=== PATIENT | female | born 1965 | race Caucasian/White ===

== ENCOUNTER 2016-08-11 22:08 | Emergency (ER) | payer OTHER, BC ==
--- NOTE | ~2016-08-11 | HP ---
History And Physical [address] [id number] [facility]. [address] NAME: JENIFFER JAMES : 63 STATUS : REG ER PAT#: [id number] AGE: 51 ADM/REG DATE : 08/11/16 MR#: [id number] REPORT SERV DATE: 08/12/16 DICTATED BY: NICOLAS MENDOZA DATE: 08/12/16 REPORT STATUS : Draft TRANSCRIBED BY: MODL DATE: 08/12/16 DATE OF ADMISSION: 08/11/2016 CHIEF COMPLAINT: Hernia. HISTORY OF PRESENT ILLNESS: This is a 51-year-old female, who was at work and was lifting a large quiz and art appliance and when doing so felt a sharp stabbing/tearing pain in her right lower quadrant/groin of her abdomen. She thought she first had pulled a muscle and the pain persisted, she saw medical care at work. She eventually got a rounding in the CT scan, which showed a hernia that was believed outside report to be incarcerated, so she was referred to the emergency department for acute care. The patient reports that she has pain in her right lower quadrant of her abdomen/groin. She has no nausea, no vomiting. She had a bowel movement, and her last bowel movement was three days ago, was normal. No bright red blood per rectum. No melena. She does report that she goes more often. She is passing gas. Denies any dysuria or hematuria. Denies anorexia. The patient has never had a hernia before. REVIEW OF SYSTEMS: All systems were reviewed and negative except for those mentioned in the HPI. ALLERGIES: NO KNOWN DRUG ALLERGIES. PAST MEDICAL HISTORY: GERD. PAST SURGICAL HISTORY: None. SOCIAL HISTORY: A 35 to 40 pack-year smoker. Drinks 10 to 12 beers a week. Has never had symptoms of withdrawal. No drugs. Works for [employer] here in [place], [place]. FAMILY HISTORY: No cancers or autoimmune disease mentioned. MEDICATIONS: Nexium daily. PHYSICAL EXAMINATION: VITAL SIGNS: Temperature 98.3, pulse 73, blood pressure 170/80, respiratory rate 20, and O2 sats 97% on room air. GENERAL: A well-developed, well-nourished, in no acute distress, white female, appears stated age. HEENT: Normocephalic and atraumatic. PERRLA. EOMI. Mucous membranes are moist. NECK: No lymphadenopathy. Trachea midline. CARDIOVASCULAR: Regular rate and rhythm. LUNGS: Clear to auscultation bilaterally. ABDOMEN: Soft and nondistended. She is tender to palpation in the right lower quadrant. An inguinal hernia could be palpated. With taxis maneuver, was easily able to reduce the hernia. The herniated bowel defect could be palpable. The patient had what appeared to be a large inguinal ring. After reduction, the abdomen was no longer tender. The patient felt History And Physical [address] [place]. [address] NAME: JENIFFER JAMES : 63 STATUS : REG ER PAT#: [id number] AGE: 51 ADM/REG DATE : 08/11/16 MR#: [id number] REPORT SERV DATE: 08/12/16 DICTATED BY: NICOLAS MENDOZA DATE: 08/12/16 REPORT STATUS : Draft TRANSCRIBED BY: STEPH DATE: 08/12/16 better. EXTREMITIES: No clubbing, cyanosis, or edema. 2+ pulses. MUSCULOSKELETAL: Moves all extremities well. NEURO: Cranial nerves 2 through 12 are intact. A and O x3. LABORATORY DATA: White blood cell count 9.9, hematocrit 35.1, and platelets 325. Sodium 143, potassium 3.6, chloride 107, bicarb 26, BUN 14, creatinine 0.8, and glucose 98. Urinalysis is negative. CT scan, as mentioned in HPI. ASSESSMENT AND PLAN: This is a 51-year-old female with right inguinal hernia, presented incarcerated, status post manual reduction in the emergency department. 1. The patient is stable, no longer tender to palpation. 2. The patient can follow up with Dr. Mendoza in his office to schedule an elective repair. 3. Smoking cessation counseling was offered, the patient expressed clear verbal understanding of this. DICTATED BY: MD CLARI Wilson/STEPH Nicolas Mendoza M.D. / [id number]
[2016-08-11 19:55] LABS: BASOPHILS 0.2 %; BASOPHILS ABSOLUTE 0.02 10/3/uL (0.0-0.16); EOSINOPHILS 1.3 %; EOSINOPHILS ABSOLUTE 0.13 10/3/uL (0.0-0.53); ER CBC TAT 0 Hrs 08 Mins; IMMATURE GRANULOCYTES 0.1 %; IMMATURE GRANULOCYTES ABSOLUTE 0.01 10/3/uL (0.0-0.11); LYMPHOCYTES 30.2 %; MEAN CORPUS HGB CONC 34.2 g/dL (32.0-36.0); MEAN CORPUSCULAR HEMOGLOB 33.2 pg (26.0-34.0); MEAN PLATELET VOLUME 9.1 fL (9.2-13.0); MONOCYTES 5.3 %; MONOCYTES ABSOLUTE 0.53 10/3/uL (0.21-1.20); NEUTROPHILS 62.9 %; NEUTROPHILS ABSOLUTE 6.25 10/3/uL (2.02-8.40); PLATELET COUNT 325 10/3/uL (150-400); RBC DISTRIBUTION WIDTH 12.7 % (12.0-16.0); RED CELL COUNT 3.61 10/6/uL (4.0-5.6); WHITE BLOOD CELLS 9.9 10/3/uL (4.5-10.5)
[2016-08-11 19:57] LABS: HEMATOCRIT 35.1 % (36.0-48.0); MANUAL DIFF NO %; MEAN CORPUSCULAR VOLUME 97.2 fL (80-100)
[2016-08-11 20:01] LABS: ASCORBIC ACID (UR NOT ORDER) NEG (NEG); BILIRUBIN, URINE NEGATIVE (NEG); KETONE, URINE NEGATIVE (NEG); LEUKOCYTE ESTERASE(NOT OR MOD (NEG); NITRITE (URINE) NEG (NEG); WBC (NOT ORDERED) (RFLEX) 3 (0-5)
[2016-08-11 20:10] LABS: ALBUMIN 3.5 G/DL (3.5-5.0); ALKALINE PHOSPHATASE 104 U/L (45-117); BUN (BLOOD UREA NITROGEN) 14 MG/DL (6-23); CALCIUM, SERUM 8.5 MG/DL (8.5-10.4); CHLORIDE, SERUM 107 MMOL/L (96-112); CO2 (CARBON DIOXIDE) 26 MMOL/L (24-34); GFR AFRICAN AMERICAN 98 ML/MIN (>=60); GFR NON AFRICAN AMERICAN 85 ML/MIN (>=60); GLOBULIN 3.6 G/DL (2.5-4.1); GLUCOSE, SERUM 98 MG/DL (60-99); POTASSIUM, SERUM 3.6 MMOL/L (3.5-5.3); SGOT(AST) 19 U/L (5-40); SGPT(ALT) 27 U/L (5-65); SODIUM, SERUM 143 MMOL/L (135-148); TOTAL BILIRUBIN 0.3 MG/DL (0-1.2); TOTAL PROTEIN 7.1 G/DL (6.0-8.5)
[2016-08-24] MEDS ORDERED: FLEX (16:50)
[2016-08-24] MEDS ORDERED: IBU800 (16:51)
[2016-08-24] MEDS ORDERED: TESS PO (16:51)
[2016-08-24] MEDS ORDERED: AMOXIL500 MG PO (16:52)
[2016-08-24] MEDS ORDERED: MULTIPLE VIT PO (16:53)
[2016-08-24] MEDS ORDERED: NEXIUM40 PO (17:56)
[2016-08-24] MEDS ORDERED: VENTOLIN HFA INH (17:57)
== END 2016-08-12 00:43 | disposition home or self-care (01) ==
LOC: ER 22:08
PROVIDERS: Emergency Medicine
DX: K40.90 Unilateral inguinal hernia, without obstruction or gangrene, not specified as recurrent (principal); F17.200 Nicotine dependence, unspecified, uncomplicated
CPT/HCPCS: 80053; 81001; 83605; 83690; 85025; 87086; 96374; 96375; 99284; J1170; J2405